=== PATIENT | male | born 1975 | race Caucasian/White ===

== ENCOUNTER 2021-11-06 17:08 | Inpatient (IN) | payer BC ==
[2021-11-06 20:07] LABS: EOS % 0.4 % (0-4.5); HEMATOCRIT 42.7 % (35.4-49); HEMOGLOBIN 14.7 GM/dL (11.7-16.9); LYMPH % 11.9 % (8-40); MCH 30.4 pg (25.7-33.7); MCHC 34.5 g/dl (32.0-35.9); MEAN CELL VOLUME 88.3 fl (80-96); MONO % 6.6 % (3.8-10.2); NEUT % 80.1 % (42.8-82.8); PLATELET COUNT 336 10^3/uL (134-434); RBC 4.84 M/mm3 (4.00-5.60); RDW 13.2 % (11.9-15.9); WHITE BLOOD COUNT 7.2 K/mm3 (4.0-10.0)
[2021-11-06 20:26] LABS: CHLORIDE 101 mmol/L (98-107); SODIUM 142 mmol/L (136-145)
[2021-11-06 20:29] LABS: ALBUMIN 4.7 g/dl (3.4-5.0); ANION GAP 13 MMOL/L (8-16); BLOOD UREA NITROGEN 12.7 mg/dL (7-18); CO2 28 mmol/L (21-32); GLUCOSE,RANDOM 83 mg/dL (74-106); MAGNESIUM 2.2 mg/dL (1.8-2.4)
[2021-11-06 20:32] LABS: CREATININE 0.7 mg/dL (0.55-1.3); SGOT/AST 30 U/L (15-37); SGPT/ALT 27 U/L (13-61)
[2021-11-06 20:34] LABS: BILIRUBIN,TOTAL 0.6 mg/dL (0.2-1); TOT PROT 8.2 g/dl (6.4-8.2)
[2021-11-06 20:35] LABS: ALK PHOS 64 U/L (45-117)
[2021-11-06 20:52] LABS: CALCIUM 6.6 mg/dL (8.5-10.1)
[2021-11-06 20:52] LABS: PH,URINE 6.5 (5.0-8.0); URINE APPEARANCE CLEAR; URINE BILIRUBIN NEGATIVE (NEGATIVE); URINE COLOR YELLOW; URINE GLUCOSE (UA) NEGATIVE (NEGATIVE); URINE KETONE NEGATIVE (NEGATIVE); URINE LEUK ESTERASE NEGATIVE (NEGATIVE); URINE NITRITE NEGATIVE (NEGATIVE); URINE PROTEIN NEGATIVE (NEGATIVE); URINE UROBILINOGEN 0.2 mg/dL (0.2-1.0)
[2021-11-06] MEDS ORDERED: CALCIUM GLUCONATE 10% - 1,000 MG/10 ML VIAL IVPB ONE (20:53)
[2021-11-06] MEDS ORDERED: CALCIUM GLUCONATE 10% - 1,000 MG/10 ML VIAL ONE (21:12)
[2021-11-06] MEDS ORDERED: KCL 10 MEQ IVPB 10 MEQ/100 ML INFUS.BAG IVPB ONE (21:13)
[2021-11-06] MEDS ORDERED: KCL 10 MEQ IVPB 10 MEQ/100 ML INFUS.BAG IVPB SCH (21:15)
[2021-11-06] MEDS ORDERED: POTASSIUM CHLORIDE ORAL LIQUID 20 MEQ/15 ML PO ONE (21:20)
[2021-11-06] MEDS ORDERED: POTASSIUM CHLORIDE ORAL LIQUID 20 MEQ/15 ML ONE (21:26)
[2021-11-06] MEDS ORDERED: CALCITRIOL 0.25 MCG CAPSULE (FP) PO ONE (21:50)
[2021-11-06] MEDS ORDERED: ACETAMINOPHEN 1000 MG/100 ML BAG IVPB ONE (22:29)
[2021-11-06] MEDS ORDERED: CALCIUM (OYSTER SHELL) 500 MG TABLET (FP) PO ONE (23:00)
[2021-11-06] MEDS ORDERED: ACETAMINOPHEN INJECTION 100 ML IVPB ONE (23:29)
[2021-11-07 01:26] LABS: BLOOD UREA NITROGEN 12.9 mg/dL (7-18); CALCIUM 7.3 mg/dL (8.5-10.1)
[2021-11-07 01:27] LABS: ALBUMIN 4.2 g/dl (3.4-5.0)
[2021-11-07 01:29] LABS: CREATININE 0.7 mg/dL (0.55-1.3)
[2021-11-07 01:31] LABS: BILIRUBIN,TOTAL 0.8 mg/dL (0.2-1); TOT PROT 7.7 g/dl (6.4-8.2)
[2021-11-07] MEDS ORDERED: CALCIUM GLUCONATE 10% - 1,000 MG/10 ML VIAL IVPB ONE (02:08)
[2021-11-07] MEDS ORDERED: CALCIUM GLUCONATE 10% - 1,000 MG/10 ML VIAL ONE (03:12)
[2021-11-07 04:38] VITALS: BMI 28.0
[2021-11-07] MEDS ORDERED: LEVOTHYROXINE NA 75 MCG TABLET (FP) ONE (06:24)
[2021-11-07] MEDS ORDERED: LEVOTHYROXINE NA 100 MCG TABLET (FP) ONE (06:24)
[2021-11-07] MEDS: LEVOTHYROXINE 100 MCG, LEVOTHYROXINE 75 MCG PO SCH (07:38)
[2021-11-07] MEDS: amLODIPine BESYLATE 5 MG TABLET (FP) PO SCH (09:46)
[2021-11-07] MEDS: CALCITRIOL 0.25 MCG CAPSULE (FP) PO SCH ×2 (09:46→22:13)
[2021-11-07] MEDS: ENOXAPARIN NA (PORCINE) 40 MG/0.4 ML DISP.SYRIN SQ SCH (09:46)
[2021-11-07] MEDS: CALCIUM CARBONATE 650 MG TABLET PO SCH ×2 (09:47→22:14)
[2021-11-07] MEDS ORDERED: PATIENT'S OWN MEDICATION (NON-FORMULARY) (Levothyroxine Sodium [Levothyroxine] 175 MCG Cap PO SCH (10:00)
[2021-11-07 12:12] LABS: BASO % 1.1 % (0-2.0); EOS % 2.1 % (0-4.5); HEMATOCRIT 43.8 % (35.4-49); LYMPH % 22.3 % (8-40); MCH 30.3 pg (25.7-33.7); MCHC 34.3 g/dl (32.0-35.9); MEAN CELL VOLUME 88.2 fl (80-96); MEAN PLT VOLUME 7.9 fl (7.5-11.1); MONO % 9.1 % (3.8-10.2); NEUT % 65.4 % (42.8-82.8); PLATELET COUNT 328 10^3/uL (134-434); RBC 4.96 M/mm3 (4.00-5.60); RDW 13.5 % (11.9-15.9); WHITE BLOOD COUNT 4.2 K/mm3 (4.0-10.0)
[2021-11-07 12:38] LABS: ALBUMIN 4.2 g/dl (3.4-5.0); MAGNESIUM 2.3 mg/dL (1.8-2.4)
[2021-11-07 12:39] LABS: BLOOD UREA NITROGEN 13.1 mg/dL (7-18)
[2021-11-07 12:41] LABS: PHOSPHOROUS 5.5 mg/dL (2.5-4.9)
[2021-11-07 12:42] LABS: CREATININE 0.7 mg/dL (0.55-1.3)
[2021-11-07 12:43] LABS: BILIRUBIN,TOTAL 1.1 mg/dL (0.2-1); TOT PROT 7.8 g/dl (6.4-8.2)
[2021-11-07 12:58] LABS: CALCIUM 8.8 mg/dL (8.5-10.1)
[2021-11-07] MEDS ORDERED: CALCITRIOL 0.25 MCG CAPSULE (FP) PO ONE (21:50)
[2021-11-07] MEDS ORDERED: CALCIUM CARBONATE 650 MG TABLET PO ONE (21:52)
[2021-11-08] MEDS ORDERED: LEVOTHYROXINE NA 100 MCG TABLET (FP) ONE (05:29)
[2021-11-08] MEDS ORDERED: LEVOTHYROXINE NA 75 MCG TABLET (FP) ONE (05:29)
[2021-11-08] MEDS: LEVOTHYROXINE 100 MCG, LEVOTHYROXINE 75 MCG PO SCH (06:21)
[2021-11-08 07:46] LABS: BASO % 0.8 % (0-2.0); EOS % 2.9 % (0-4.5); HEMOGLOBIN 15.1 GM/dL (11.7-16.9); LYMPH % 22.5 % (8-40); MCH 30.2 pg (25.7-33.7); MCHC 34.4 g/dl (32.0-35.9); MEAN CELL VOLUME 87.9 fl (80-96); MEAN PLT VOLUME 7.8 fl (7.5-11.1); MONO % 8.7 % (3.8-10.2); NEUT % 65.1 % (42.8-82.8); PLATELET COUNT 289 10^3/uL (134-434); RDW 13.3 % (11.9-15.9); WHITE BLOOD COUNT 5.1 K/mm3 (4.0-10.0)
[2021-11-08 07:55] LABS: CALCIUM 9.2 mg/dL (8.5-10.1)
[2021-11-08 07:56] LABS: BLOOD UREA NITROGEN 13.4 mg/dL (7-18); MAGNESIUM 2.1 mg/dL (1.8-2.4)
[2021-11-08 07:59] LABS: CREATININE 0.7 mg/dL (0.55-1.3)
[2021-11-08 09:01] VITALS: BP 124/81; PULSE 76; RESP 17; TEMP 98
[2021-11-08] MEDS: ENOXAPARIN NA (PORCINE) 40 MG/0.4 ML DISP.SYRIN SQ SCH ×2 (09:15→09:22)
[2021-11-08] MEDS: amLODIPine BESYLATE 5 MG TABLET (FP) PO SCH (09:15)
[2021-11-08] MEDS: CALCIUM CARBONATE 650 MG TABLET PO SCH (09:15)
[2021-11-08] MEDS: CALCITRIOL 0.25 MCG CAPSULE (FP) PO SCH (09:15)
== END 2021-11-08 14:09 | disposition home or self-care (01) | DRG 641 ==
LOC: JER 17:08 → JERBED 11-07 00:46 → J4W 11-07 05:25 → JERBED 11-08 02:58 → J4W 11-08 03:01
PROVIDERS: ADMIT Internal Medicine; ATTEND Internal Medicine
DX: E83.51 Hypocalcemia (principal); E87.6 Hypokalemia; I10 Essential (primary) hypertension
CPT/HCPCS: 36415; 71046-TC-FY; 80048; 80053; 81003; 82306; 82330; 83735; 83970; 84100; 84439; 84443; 85025; 87086; 93005; 93010; 99285-25; C9803-CS; U0003; U0005

== ENCOUNTER 2021-12-22 09:41 | Emergency (ER) | payer BC ==
[2021-12-22 09:49] VITALS: BMI 27.1
[2021-12-22 10:37] LABS: BASO % 0.5 % (0-2.0); EOS % 1.1 % (0-4.5); HEMATOCRIT 44.8 % (35.4-49); MCH 29.6 pg (25.7-33.7); MCHC 33.4 g/dl (32.0-35.9); MEAN CELL VOLUME 88.5 fl (80-96); MEAN PLT VOLUME 7.6 fl (7.5-11.1); MONO % 8.2 % (3.8-10.2); NEUT % 72.2 % (42.8-82.8); PLATELET COUNT 278 10^3/uL (134-434); RBC 5.06 M/mm3 (4.00-5.60); RDW 13.3 % (11.9-15.9); WHITE BLOOD COUNT 4.9 K/mm3 (4.0-10.0)
[2021-12-22 10:45] LABS: ACTIVATED PTT 32.4 SECONDS (25.2-36.5)
[2021-12-22 10:53] LABS: ALBUMIN 4.5 g/dl (3.4-5.0); BLOOD UREA NITROGEN 7.3 mg/dL (7-18); CALCIUM 8.4 mg/dL (8.5-10.1); MAGNESIUM 2.2 mg/dL (1.8-2.4)
[2021-12-22 10:56] LABS: CREATININE 0.8 mg/dL (0.55-1.3)
[2021-12-22 10:57] LABS: BILIRUBIN,TOTAL 0.4 mg/dL (0.2-1)
[2021-12-22 11:15] LABS: INR 1.07 (0.83-1.09); PROTHROMBIN TIME (PATIENT) 12.3 SEC (9.7-13.0)
[2021-12-22] MEDS ORDERED: CALCIUM GLUC IN NACL, ISO-OSM 1 GM/50 ML BAG IVPB ONE ×2 (12:11→12:25)
[2021-12-22 14:11] VITALS: BP 135/74; PULSE 83; RESP 16; TEMP 98.3
== END 2021-12-22 14:11 | disposition home or self-care (01) ==
LOC: JER 09:41
PROC: 3E033GC Introduction of Other Therapeutic Substance into Peripheral Vein, Percutaneous Approach (ICD-10-PCS; principal; 2021-12-22)
DX: R07.9 Chest pain, unspecified (principal); R25.8 Other abnormal involuntary movements
CPT/HCPCS: 36415; 71045-TC-FY; 80053; 82330; 83735; 84439; 84443; 84484; 85025; 85379; 85610; 85730; 93005; 93010; 99285-25

== ENCOUNTER 2022-08-24 16:54 | Emergency (ER) | payer BC ==
[2022-08-24 17:03] VITALS: BP 139/88; PULSE 85; RESP 16; TEMP 98.6; BMI 23.1
[2022-08-24 18:42] LABS: BASO % 0.6 % (0-2.0); EOS % 1.3 % (0-4.5); HEMATOCRIT 40.2 % (35.4-49); HEMOGLOBIN 14.4 GM/dL (11.7-16.9); LYMPH % 22.3 % (8-40); MCH 31.2 pg (25.7-33.7); MCHC 35.8 g/dl (32.0-35.9); MEAN CELL VOLUME 87.1 fl (80-96); MONO % 8.4 % (3.8-10.2); NEUT % 67.4 % (42.8-82.8); PLATELET COUNT 266 10^3/uL (134-434); RBC 4.61 M/mm3 (4.00-5.60); RDW 13.2 % (11.9-15.9); WHITE BLOOD COUNT 5.4 K/mm3 (4.0-10.0)
[2022-08-24 19:12] LABS: POTASSIUM 5.8 mmol/L (3.5-5.1)
[2022-08-24 19:15] LABS: CALCIUM 7.6 mg/dL (8.5-10.1)
[2022-08-24 19:16] LABS: ALBUMIN 3.8 g/dl (3.4-5.0); BLOOD UREA NITROGEN 9.3 mg/dL (7-18)
[2022-08-24 19:19] LABS: CREATININE 0.7 mg/dL (0.55-1.3)
[2022-08-24 19:20] LABS: BILIRUBIN,TOTAL 0.4 mg/dL (0.2-1)
[2022-08-24 19:21] LABS: TOT PROT 7.6 g/dl (6.4-8.2)
[2022-08-25] MEDS ORDERED: CALCIUM CARBONATE 650 MG TABLET PO ONE ×2 (20:04)
== END 2022-08-24 21:14 | disposition home or self-care (01) ==
LOC: JER 16:54
DX: E83.51 Hypocalcemia (principal); R25.2 Cramp and spasm; R07.2 Precordial pain; H52.531 Spasm of accommodation, right eye
CPT/HCPCS: 36415; 71045-TC-FY; 80053; 84439; 84443; 84484; 85025; 93005; 93010; 99285-25

== ENCOUNTER 2024-02-07 10:39 | Emergency (ER) | payer BC ==
[2024-02-07 10:45] VITALS: TEMP 97.6; BMI 25.9
[2024-02-07 11:30] VITALS: BP 138/96; PULSE 87; RESP 19
[2024-02-07 11:36] LABS: BASO % 0.7 % (0-2.0); EOS % 0.6 % (0-4.5); HEMATOCRIT 46.3 % (35.4-49); HEMOGLOBIN 15.6 GM/dL (11.7-16.9); LYMPH % 13.2 % (8-40); MCH 30.1 pg (25.7-33.7); MCHC 33.7 g/dl (32.0-35.9); MEAN CELL VOLUME 89.2 fl (80-96); MEAN PLT VOLUME 7.2 fl (7.5-11.1); MONO % 7.3 % (3.8-10.2); NEUT % 78.2 % (42.8-82.8); PLATELET COUNT 272 10^3/uL (134-434); RBC 5.18 M/mm3 (4.00-5.60); RDW 13.1 % (11.9-15.9); WHITE BLOOD COUNT 5.7 K/mm3 (4.0-10.0)
[2024-02-07 11:44] LABS: INR 1.03 (0.83-1.09); PROTHROMBIN TIME (PATIENT) 11.6 SEC (9.7-13.0)
[2024-02-07 11:47] LABS: ACTIVATED PTT 34.7 SECONDS (25.2-36.5)
[2024-02-07 11:54] LABS: POTASSIUM 4.2 mmol/L (3.5-5.1)
[2024-02-07 11:56] LABS: CALCIUM 7.8 mg/dL (8.5-10.1)
[2024-02-07 11:57] LABS: ALBUMIN 4.3 g/dl (3.4-5.0); BLOOD UREA NITROGEN 11.7 mg/dL (7-18); MAGNESIUM 2.3 mg/dL (1.8-2.4)
[2024-02-07 12:00] LABS: CREATININE 0.8 mg/dL (0.55-1.3)
[2024-02-07 12:01] LABS: BILIRUBIN,TOTAL 0.6 mg/dL (0.2-1)
[2024-02-07 12:02] LABS: TOT PROT 7.9 g/dl (6.4-8.2)
[2024-02-07] MEDS ORDERED: CALCIUM GLUCONATE 10% - 1,000 MG/10 ML VIAL ONE (12:38)
[2024-02-07] MEDS: CALCIUM GLUCONATE 10% - 1,000 MG/10 ML VIAL IVPUSH ONE (12:50)
== END 2024-02-07 14:17 | disposition home or self-care (01) ==
LOC: JER 10:39
PROC: 3E033GC Introduction of Other Therapeutic Substance into Peripheral Vein, Percutaneous Approach (ICD-10-PCS; principal; 2024-02-07)
DX: E83.51 Hypocalcemia (principal); M62.838 Other muscle spasm; R07.9 Chest pain, unspecified
CPT/HCPCS: 36415; 71045-TC-FY; 80053; 83735; 84439; 84443; 84484; 85025; 85610; 85730; 93005; 93010; 99285-25